=== PATIENT | female | born 1950 | race Caucasian/White ===

== ENCOUNTER 2022-10-23 07:25 | Day surgery (SDC) | payer MEDICARE, OTHER ==
[2022-10-21 14:51] VITALS: BMI 32.9
[~2022-10-23 07:25] MED LIST: DEXAMETHASONE SOD PHOSPHATE 4 MG/ML 1 ML VIAL IV ONE; HYDROmorphone 0.5 MG/0.5 ML SYRINGE IVP PRN; LACTATED RINGERS 1,000 ML IV SCH; MIDAZOLAM 2 MG/2 ML VIAL IV PRN; ONDANSETRON 4 MG/2 ML VIAL IVP ONE
[2022-10-23] MEDS ORDERED: MIDAZOLAM 2 MG/2 ML VIAL IVP ONE (08:47)
--- NOTE | 2022-10-23 09:24 | P.ANPRN ---
Procedure Note - Anesthesia - Nerve Block Performed Right Adductor Canal Single Time Out Performed: Yes Date of Procedure: 10/23/22 Procedure Start Time: 08:47 Procedure Stop Time: 08:53 Location of Patient: PreOp Indication: Acute Post-Operative Pain, Requested by Surgeon Sedation Type: Sedate with meaningful contact maintained Preparation: Sterile Prep, Sterile Dressing Position: Supine Catheter: None Needle Types: Facet Needle Gauge: 20 Ultrasound used to visualize needle placement: Yes Ultrasound used to observe medication spread: Yes Injectate: 0.5% Ropivacaine (see comment for volume) (10 ml + decadron 2 mg) Blood Aspirated: No Pain Paresthesia on Injection Noted: No Resistance on Injection: Normal Image Stored and Saved: Yes Events: Uneventful and Well Tolerated Right Popliteal Single Date of Procedure: 10/23/22 Procedure Start Time: 08:54 Procedure Stop Time: 08:59 Location of Patient: PreOp Indication: Acute Post-Operative Pain, Requested by Surgeon Sedation Type: Sedate with meaningful contact maintained Preparation: Sterile Prep, Sterile Dressing Position: Left Lateral Catheter: None Needle Types: Facet Needle Gauge: 20 Ultrasound used to visualize needle placement: Yes Ultrasound used to observe medication spread: Yes Injectate: 0.5% Ropivacaine (see comment for volume) (20 ml + 2 mg decadron) Blood Aspirated: No Pain Paresthesia on Injection Noted: No Resistance on Injection: Normal Image Stored and Saved: Yes Events: Uneventful and Well Tolerated
[2022-10-23] MEDS ORDERED: ROPIVACAINE 5 MG/ML 30 ML VIAL ONE (09:29)
[2022-10-23] MEDS ORDERED: ePHEDrine 50 MG/ML 1 ML VIAL ONE (09:29)
[2022-10-23] MEDS ORDERED: DEXAMETHASONE SOD PHOSPHATE 4 MG/ML 1 ML VIAL ONE (09:29)
[2022-10-23] MEDS ORDERED: PROPOFOL 10 MG/ML 20 ML VIAL IV ONE (09:29)
[2022-10-23] MEDS ORDERED: SUCCINYLCHOLINE CHLORIDE 200 MG/10 ML VIAL IV ONE (09:29)
[2022-10-23] MEDS ORDERED: METOPROLOL TARTRATE 5 MG/5 ML VIAL IVP ONE (09:29)
[2022-10-23] MEDS ORDERED: LIDOCAINE 2% INJ 20 MG/ML (2 ML VIAL) ONE (09:29)
[2022-10-23] MEDS ORDERED: fentaNYL (PF) 50 MCG/ML 2 ML AMP ONE (09:29)
[2022-10-23] MEDS ORDERED: ceFAZolin 1,000 MG in SODIUM CHLORIDE 0.9% 1,000 ML IRRIGATION ONE (09:35)
[2022-10-23 10:53] VITALS: RESP 16; TEMP 97.2
[2022-10-23 12:13] VITALS: BP 133/72; PULSE 81
--- NOTE | 2022-10-28 14:59 | OP ---
OPERATIVE REPORT DATE OF SERVICE : 10/23/2022 PREOPERATIVE DIAGNOSIS: Primary osteoarthritis, second and third tarsometatarsal joints, right foot. POSTOPERATIVE DIAGNOSES: Primary osteoarthritis, second and third tarsometatarsal joints, right foot. PROCEDURES PERFORMED: Arthrodesis of second and third tarsometatarsal joints, right foot. ANESTHESIA: General with preoperative nerve block. HEMOSTASIS: Right ankle tourniquet at 250 mmHg. ESTIMATED BLOOD LOSS: Minimal. MATERIALS: Two [place] compression joann and [place] augment. INJECTABLES: None. SPECIMENS: None. COMPLICATIONS: None . DESCRIPTION OF PROCEDURE: Prior to the patient being brought to the operative room, Anesthesia administered nerve block in the right lower extremity. The patient was brought into the operating room and placed on the table in supine position. Time-out was taken to confirm correct patient identifiers, correct laterality of the surgery, and correct procedure. Once all staff in the room were in agreement with the time-out, the patient was induced and placed under general anesthesia. A well-padded tourniquet was placed on the right foot, and then the right foot was prepped and draped in usual manner. The right foot was exsanguinated, and the tourniquet was inflated to 250 mmHg. Utilizing live fluoroscopy, the location of the second and third tarsometatarsal joints was identified and marked on the skin. A single curvilinear incision was made over the area. It was deepened down to the subcutaneous tissue careful to identify, avoid, and retract any neurovascular structures and cauterize any bleeding vessels. Blunt dissection was then carried down to the deep fascia. Blunt instrumentation was inserted deep to the fascia and incised protecting the underlying structures. Blunt dissection was continued to expose the capsular structures of the second and third tarsometatarsal joints. Once dissected, the joints were incised dorsally to expose the articular surfaces. Once fully exposed, a rotary bur was used to remove the articular cartilage and subchondral bone in both of the joints, and this was done under fluoroscopic visualization to make sure that there was complete resection of the joint. Once completed, the surfaces were aggressively fenestrated to promote bleeding and bone healing, and then the wound was thoroughly irrigated with antibiotic saline. [employer] augment was mixed on the back table and then injected between the arthrodesis segments while holding the joints reduced. A drill guide was used over the dorsal aspect of the second tarsometatarsal joint and adjusted under fluoroscopy. Once the alignment was correct, drill holes were made, and then stabilizing pins were inserted. Then, the pins were removed, and a compression staple which was already stretched was inserted into the drill holes and then impacted flush to the bone. The inner tube inserter was released allowing the legs of the staple to compress the joint. A similar procedure was done on the third tarsometatarsal joint with a similar staple. Once completed, the area was checked for stability, and there was no abnormal movement, and there was tight compression at the arthrodesis sites. The wound was carefully irrigated. Any gaps in the joint were filled with the augment material. Then, deep closure was done with 2-0 Vicryl. Subcutaneous closure was done with 4-0 Monocryl. Skin closure was done with 3-0 Stratafix in a running subcuticular manner. Dermal glue was applied and allowed to dry and covered with Steri-Strips, an Arthrex JumpStart dressing, and a dry sterile dressing. The tourniquet was released. Capillary refill returned to all digits of the right foot. The patient was then placed in a well-padded, well-molded plaster posterior mold/sugar-tong splint. The ankle and foot were held in neutral position as the splint dried. Once dried, the anesthesia was reversed, and the patient was taken to Recovery with vital signs stable. MMODL / IJN: [id number] /
== END 2022-10-23 12:32 | disposition home or self-care (01) ==
LOC: OR 07:25
PROVIDERS: ATTEND Podiatrist
DX: M19.071 Primary osteoarthritis, right ankle and foot (principal); G89.18 Other acute postprocedural pain; I10 Essential (primary) hypertension; E78.5 Hyperlipidemia, unspecified; Z88.8 Allergy status to other drugs, medicaments and biological substances; Z79.899 Other long term (current) drug therapy; Z85.3 Personal history of malignant neoplasm of breast
CPT/HCPCS: 28730; 64447; 64445; C1713 ×2; J2250; J0330; J1100; J0690 ×2; J2405; J3010; J2795; J2704; J2001